=== PATIENT | female | born 2000 ===

== ENCOUNTER 2020-09-03 16:50 | Emergency (ER) | payer SELFPAY ==
[2020-09-03] MEDS ORDERED: LIDOCAINE (1%) 10 MG/1 ML VIAL 20 ML MDV INFILTRATI ONE (16:56)
[2020-09-03] MEDS ORDERED: DIPHtheria,PERTUSSIS(ACELL),TETANUS VACCINE/PF 0.5 ML VIAL IM ONE (16:56)
--- NOTE | 2020-09-03 16:58 | Event Note ---
ED Screening Note Date of service: 09/03/20 Time: 16:57 ED Screening Note: Patient complains of left wrist cut from a broken mirror Unsure about her last tetanus vaccine This initial assessment/diagnostic orders/clinical plan/treatment(s) is/are subject to change based on patients health status, clinical progression and re- assessment by fellow clinical providers in the ED. Further treatment and workup at subsequent clinical providers discretion. Patient/guardian urged not to elope from the ED as their condition may be serious if not clinically assessed and managed. Initial orders include: X-ray Further evaluation in [facility]
[2020-09-03 17:38] VITALS: BP 130/83
--- NOTE | 2020-09-03 17:45 | Emergency Department Report ---
ED Laceration HPI - HPI Chief Complaint: Wound/Laceration Stated Complaint: WRIST LACERATION Time Seen by Provider: 09/03/20 17:19 Occurred When: Today Location: Upper Extremity Severity: mild Tetanus Status: Not up to Date Laceration Symptoms: Yes Pain, No Foreign Body Sensation, No Numbness, No Weakness Other History: This is a 20-year-old female nontoxic, well nourished in appearance, no acute signs of distress presents to the ED with c/o of left wrist laceration that occurred this evening. Patient stated that while she was lifting a mirror slipped and caused a laceration. Patient denies self-inflicted or done by others. Patient stated she is currently safe at home and denies any physical harm or physical assault. Patient denies decreased sensation or range of motion. Patient stated bleeding is under control. Denies any numbness, tingling, fever, chills, nausea, vomiting, chest pain, shortness of breath, headache or stiff neck. Patient denies any allergies to significant past medical history. Patient is that he is not up-to-date with tetanus. Exam has been performed with patient alone in the room with [employer] repairer kiln car present. Ramo (security) has been present during physical exam, interview and discharge instructions for translation purposes. ED Review of Systems ROS: Stated complaint: WRIST LACERATION Other details as noted in HPI Constitutional: denies: chills, fever Eyes: denies: eye pain, eye discharge, vision change ENT: denies: ear pain, throat pain Respiratory: denies: cough, shortness of breath, wheezing Cardiovascular: denies: chest pain, palpitations Endocrine: no symptoms reported Gastrointestinal: denies: abdominal pain, nausea, diarrhea Genitourinary: denies: urgency, dysuria, discharge Musculoskeletal: denies: back pain, joint swelling, arthralgia Skin: denies: rash, lesions Neurological: denies: headache, weakness, paresthesias Psychiatric: denies: anxiety, depression Hematological/Lymphatic: denies: easy bleeding, easy bruising ED Past Medical Hx - Past Medical History Previous Medical History?: No - Surgical History Past Surgical History?: No - Social History Smoking Status: Never Smoker Substance Use Type: None Laceration Physical Exam - Exam General: Vital signs noted. No distress. Alert and acting appropriately. GENERAL: The patient is a well-developed, well-nourished in no apparent distress. Patient is alert and acting appropriately for age. Alert and oriented 3, no apparent distress, normal gait, atraumatic. PSYCHIATRIC: Normal affect with no suicidal or homicidal ideations. Wound Length (cm): 4 (superifical) Laceration Location: Upper Extremity Full Body Front + Back: 1 - 4 cm superifical lac Laceration Exam: Yes Normal Distal CMS, No Foreign Body, No Exposed Tendon, Vessel, or Nerve, No Tendon Injury ED Course Vital Signs 09/03/20 16:58 Temperature 99.2 F Pulse Rate 78 Respiratory 18 Rate Blood Pressure 130/83 O2 Sat by Pulse 97 Oximetry - Reevaluation(s) Reevaluation #1: 09/03/20 17:55 Patient is speaking in full sentences with no signs of distress noted. - Laceration /Wound Repair Left Wrist Wound Location: upper extremity (Left wrist) Wound Length (cm): 4 Wound's Depth, Shape: superficial Wound Explored: clean Betadine Prep?: Yes Wound Repaired With: Dermabond Layer Closure?: No Sterile Dressing Applied?: Yes Progress: Under sterile field, I used Betadine to clean the area. I then used 40 mL of normal saline to flush the area. I then used Dermabond to approximate the laceration. I then applied a sterile 4 x 4 with tape. Minimal bleeding noted but is under control. Patient tolerated procedure well with no signs of distress. ED Medical Decision Making - Radiology Data LEFT WRIST 3 VIEW(S) INDICATION / CLINICAL INFORMATION: laceration, r/o glass FB COMPARISON: None available. FINDINGS: BONES / JOINT(S): No acute fracture or subluxation. No significant arthritis. SOFT TISSUES: No significant abnormality or convincing evidence of foreign body. ADDITIONAL FINDINGS: None. Signer Name: Joe Rose MD Signed: 09/03/2020 5:04 PM Workstation Name: [id number] - Medical Decision Making This is a 20-year-old female that presents with laceration. Patient is stable and was examined by me. The laceration suturing has been performed and has been performed and patient tolerated well. A sterile dressing has been applied. Patient was educated on proper wound care. Physical exam is unremarkable. Patient denies any self-inflicted injuries or physical assault/harm by others. Patient was instructed to refer to Follow-up with a primary care doctor in 3-5 days or if symptoms worsen and continue return to emergency room as soon as possible. At time of discharge, the patient does not seem toxic or ill in appearance. No acute signs of distress noted. Patient agrees to discharge treatment plan of care. No further questions noted by the patient. Exam has been performed with patient alone in the room with [employer] repairer kiln car present. Ramo (security) has been present during physical exam, interview and discharge instructions for translation purposes. Critical care attestation.: If time is entered above; I have spent that time in minutes in the direct care of this critically ill patient, excluding procedure time. ED Disposition Clinical Impression: Laceration of left wrist Qualifiers: Encounter type: initial encounter Qualified Code(s): S61.512A - Laceration without foreign body of left wrist, initial encounter Disposition: DC- TO HOME OR SELFCARE Is pt being admited?: No Does the pt Need Aspirin: No Condition: Stable Instructions: Laceration Care, Adult, Tissue Adhesive Wound Care, [id number] Additional Instructions: Follow-up with a primary care doctor in 3-5 days or if symptoms worsen and continue return to emergency room as soon as possible. Referrals: PRIMARY CAREMD [Primary Care Provider] - 3-5 Days VALERIO WANG MD [Staff Physician] - 3-5 Days Time of Disposition: 17:58 Print Language: CITIZEN OF [place]
--- NOTE | 2020-09-03 18:09 | XRay Report ---
LEFT WRIST 3 VIEW(S) INDICATION / CLINICAL INFORMATION: laceration, r/o glass FB COMPARISON: None available. FINDINGS: BONES / JOINT(S): No acute fracture or subluxation. No significant arthritis. SOFT TISSUES: No significant abnormality or convincing evidence of foreign body. ADDITIONAL FINDINGS: None. Signer Name: Joe Rose MD Signed: 09/03/2020 6:04 PM Workstation Name: [id number]
== END 2020-09-03 18:44 | disposition home or self-care (01) ==
LOC: ED 16:50
DX: S61.512A Laceration without foreign body of left wrist, initial encounter (principal); W25.XXXA Contact with sharp glass, initial encounter; Y93.89 Activity, other specified; Y92.89 Other specified places as the place of occurrence of the external cause; Y99.8 Other external cause status
CPT/HCPCS: 90471; 90715; 99283